=== PATIENT | female | born 1975 | race Two or more races ===

== ENCOUNTER 2024-10-06 09:55 | Outpatient (AMB) | payer OTHER, SELFPAY ==
[2024-10-06 09:57] VITALS: BP 118/70; PULSE 67; O2SAT 96; BMI 25.2
--- NOTE | 2024-10-06 09:57 | MHC.OFFVIS ---
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 Patient was seen in ED in June for episode of fainting. Echo done(normal). Confussion associated w/fainting episode for at least 10min after. Echo requested from [facility]. Patient states she now has a feeling of dizziness. Patient stqates she is not taking medications at this time. Allergies Penicillins Allergy (Mild, Verified 10/06/24 10:02) Unknown Medication List - Last Reconciled 10/06/24 by CLIFFORD Abdalla escitalopram oxalate 20 mg PO DAILY fluticasone propionate 50 mcg/actuation 1 spray intranasal BID hydroxyzine HCl 10 mg PO BID PRN loratadine 10 mg PO DAILY PRN meclizine 25 mg PO BID PRN valacyclovir 2,000 mg PO BID PRN HPI Comments Details: History of Present Illness The patient is a 49-year-old female presenting with concerns regarding history of 2 separate syncopal events and intermittent dizziness. The initial episode occurred approximately two years ago in [facility], around June. The 1st time was 2 years ago, she was in [place] on vacation.? She states she woke up around 4-5am with need to void. She reports she had to ask her boyfriend for help because she could not move. Her boyfriend helped her up to the bathroom. She used the bathroom. ?Upon walking back to the bed, she started to feel lightheaded, everything looked black and white, her boyfriend?s voice felt distant, she became increasingly weak and slow associated with back soreness until she fainted and fell to the floor. Her boyfriend told her she had LOC x's 5-6 min. there was no report of urinary or bowel incontinence. ?She was treated by someone who came to her- was given coconut water, and she started to feel better. She states it took her 4-5 hours to feel better after coming to. In hindsight, she thinks she was very dehydrated- had not been drinking enough water. She endorses eating well with the before, however denies any alcohol or substance use. ? 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 During this event, she had been sipping on teen water, when she felt the need to eat and proceeded to the cafeteria for an apple. She fainted before she could consume it. It was noted that she was partaking in an intermittent fasting regime, having not eaten for 15 hours prior to the episode. Upon recovery, the patient reported brief transient confusion and inability to recall personal information. The school staff assisted her into a w/c, and she was brought to the nurses? station, and she could not recall her age. Had orthostatic BPs by the school nurse- was told this was normal. She was brought to [facility] ER- however she was not seen before she left. She did get some food from the [facility] cafeteria, and after eating, she started to feel better, so she left. ?She attributed the episode to prolonged fasting. ? Since these events, she reports occasional dizziness, particularly upon standing or exerting herself physically, often alleviated by holding onto an object or hydrating. She perceives this dizziness as a sensation of the world spinning. There is no prior history of syncope before these episodes. She underwent cardiology assessment through [facility], at [facility], with no abnormalities noted in her heart function.? Echocardiogram is normal ? She also notes she likes to sleep la, can oversleep and takes naps- for instance- yesterday took a nap from 6pm-10pm, and then woke up dis some housework, and slept from 12am-8am. Typically sleeps from 10pm-5am- to be ready for work for 8am. Endorses snoring, some restless legs, leg cramps, daytime sleepiness. ? 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 She is now taking at least 100oz of water w/ chevak/mint/cucumbers per day. May also have 1-2 teas per day. Occasionally may drink a coconut water. Takes some salt with her eggs in the am, or to season her food- but not a lot. Has not used any liquid IV or Gatorade/Powerade- tries to take natural drinks/food. ? Family History: - Grandfather with a history of cardiovascular disease associated with alcohol use ? ? Review of Systems - Neurological: Reports dizziness, especially when moving or standing; denies history of seizures, headaches - Respiratory: Denies shortness of breath - Cardiovascular: Denies chest pain, SOB, skin color changes, swelling; reports history of two syncope episodes - Sleep: Reports excessive sleepiness; difficulty maintaining focus - Musculoskeletal: Reports nocturnal leg cramps; possible restless legs - Gastrointestinal: Denies regular episodes of GI distress ? ? Results - Echocardiogram: Reported as normal - from : TOTAL IRON BINDING CAPAC* 06/30/2022 334 ? IRON (FE) 06/30/2022 195 (H) ? % FE SATURATION 06/30/2022 58 (H) ? FERRITIN 06/30/2022 43 Review of Systems - Neurological: Reports dizziness, especially when moving or standing; denies history of seizures - Respiratory: Denies shortness of breath - Cardiovascular: Denies chest pain; reports history of two syncope episodes - Sleep: Reports excessive sleepiness; difficulty maintaining focus - Musculoskeletal: Reports nocturnal leg cramps; denies restless legs - Gastrointestinal: Denies regular episodes of GI distress Results - Echocardiogram: Reported as normal [facility] Medical History (Updated 10/06/24 @ 13:40 by CLIFFORD Abdalla) Anemia Bony overgrowth Venous insufficiency Anxiety Allergic rhinitis Herpes simplex type 1 infection Thrombophlebitis Leg pain Syncope Surgical History History of removal of skin mole Family History (Updated 04/23/24 @ 12:59 by SHARONDA Boyd) Sister Thyroid cancer Social History (Updated 04/23/24 @ 12:57 by SHARONDA Boyd) Alcohol intake: never Patient Tobacco Use Status: Never used Tobacco e-Cigarette/Vaping Use: Never Used Physical Exam Vital Signs: Last Vital Signs Pulse 67 10/06/24 09:57 BP 118/70 10/06/24 09:57 Pulse Ox 96 10/06/24 09:57 Oxygen Delivery Method Room Air 10/06/24 09:57 BMI result Body Mass Index 25.2 Const Orientation/consciousness: patient oriented x3 Resp Effort & Inspection: normal respiratory effort and able to speak in complete sentences Neuro Other: Mallampati stage III-IV Mild sway on Romberg General: patient oriented x3 Cranial nerves: Yes CN's II-XII intact bilaterally Cognition (Neuro): normal cognition Gait exam (Neuro): Normal gait present Motor exam (neuro): 5/5 motor strength present throughout Deep tendon reflexes (DTR's): Right triceps reflex intensity grade: 2+, Left triceps reflex intensity grade: 2+, Rt Biceps (C5, C6): 2+, Left biceps reflex intensity grade: 2+, Right brachioradialis reflex intensity grade: 2+, Left brachioradialis reflex intensity grade: 2+, Right patellar reflex intensity grade: 2+ and Left patellar reflex intensity grade: 2+ Coordination: [id number] test normal and tandem gait normal Pupils: Normal pupillary reactivity/response: bilateral Psych Appearance: grossly normal Mental Status: mental status grossly normal Speech and movement: Normal speech and movement present Affect: normal affect Attitude: cooperative Thought process: Normal thought process present Assessment & Plan Assessment & Plan (1) Syncope: Code(s): R55 - Syncope and collapse Category: Medical Qualifiers: Syncope type: unspecified Qualified Code(s): R55 - Syncope and collapse (2) Snoring: Code(s): R06.83 - Snoring Category: Medical (3) Dizziness: Code(s): R42 - Dizziness and giddiness Category: Medical (4) Excessive daytime sleepiness: Code(s): G47.19 - Other hypersomnia Category: Medical (5) Sleep difficulties: Code(s): G47.9 - Sleep disorder, unspecified Category: Medical Plan Discussion Notes During the consultation, I discussed with the patient the potential causes of her syncopal episodes. I explained that dehydration and fasting likely contributed to episodes of orthostatic hypotension, resulting in syncope. We reviewed the importance of adequate hydration and nutrition to maintain stable blood pressure. I also counseled her on the symptoms consistent with sleep apnea and possible restless leg symptoms, and the potential need for further evaluation through a sleep study to investigate excessive daytime sleepiness. The risks and benefits of such evaluations were discussed, focusing on obtaining baseline data to rule out sleep-disordered breathing, which may contribute to her symptoms. We emphasized the need for careful fluid and electrolyte management, especially when physically active or in varying climates. The patient expressed understanding of the recommendations and the rationale for further testing. Plan - Recommend reducing daily fluid intake to approximately 75 fluid ounces per day. - Introduce the use of an electrolyte replacement supplement, such as one packet of Liquid IV per day, to counter orthostatic hypotension symptoms. - Advise on performing actions such as standing slowly and regularly consuming small amounts of food to avoid fasting-related hypotension. - Prescribe Magnesium 400 mg daily at bedtime to potentially mitigate leg cramps, with a warning of potential adverse effects. - Order home sleep study to investigate symptoms indicative of potential sleep apnea. - Retrieved past laboratory results from her primary care provider to evaluate for anemia or other possible metabolic conditions contributing to her restlessness and fatigue- limited results available, last done in 2022. We will order baseline labs Patient was informed and verbally consented to the use of an ambient scribe for clinic note documentation during this visit. Patient Instructions - Drink about 75 ounces of water each day. Flavor with chevak, cucumber, or mint as desired. - Take one electrolyte supplement a day, like Liquid IV, to help stay hydrated. - Stand up slowly to avoid dizziness. - Take Magnesium at bedtime, but stop if you get an upset stomach. - Have small meals regularly; don't skip meals. - We're doing a home sleep study soon; you'll hear more about it. - Check labs - Allow tip: Feel tired in the shower? Drink water before you bathe. - Contact us with any new or worsening symptoms. Pt seen in collaboration w/ Dr Velia To. We will follow-up upon review of above and with a follow-up clinic visit in 6 months or sooner as needed. Orders: Orders Comprehensive [place]. Panel Fast Today D64.9 - Anemia, unspecified, R25.2 - Cramp and spasm, R42 - Dizziness and giddiness, R53.83 - Other fatigue Ferritin Today D64.9 - Anemia, unspecified, R25.2 - Cramp and spasm, R42 - Dizziness and giddiness, R53.83 - Other fatigue IRON PROFILE Today D64.9 - Anemia, unspecified, R25.2 - Cramp and spasm, R42 - Dizziness and giddiness, R53.83 - Other fatigue RT home sleep study Today G47.19 - Other hypersomnia, G47.9 - Sleep disorder, unspecified, R06.83 - Snoring Complete Blood Count Auto Diff Today D64.9 - Anemia, unspecified, R25.2 - Cramp and spasm, R42 - Dizziness and giddiness, R53.83 - Other fatigue Vitamin B12 and Folate Today D64.9 - Anemia, unspecified, R25.2 - Cramp and spasm, R42 - Dizziness and giddiness, R53.83 - Other fatigue TSH reflex Free T4 Today D64.9 - Anemia, unspecified, R25.2 - Cramp and spasm, R42 - Dizziness and giddiness, R53.83 - Other fatigue Medications: New magnesium oxide may hold for loose stools 400 mg PO BEDTIME 90 tabs 3RF 90 days Coding Level of Care Code New Pt Level 4 (42895) Diagnoses Syncope, unspecified syncope type R55 Syncope type: unspecified Snoring R06.83 Dizziness R42 Excessive daytime sleepiness G47.19 Sleep difficulties G47.9 [place] Sleepiness Scale Questions Sitting and reading: high chance of dozing Watching TV: high chance of dozing Sitting inactive in a theater, movie etc.: high chance of dozing As a passenger in a car for an hour without break: high chance of dozing Lying down in the afternoon when circumstances permit: high chance of dozing Sitting and talking to someone: high chance of dozing Sitting quietly after lunch without alcohol: high chance of dozing In a car, while stopped for a few minutes in the traffic: slight chance of dozing ESS < 10: normal, ESS > 12: pathologic: 22
--- OUTSIDE RECORDS SUMMARY | 2024-10-06 10:34 | XMS_ITS ---
Author Name [facility] Organization Unknown History of Medication Use Medication Directions Dispensed Refills Start Date End Date Stat us escitalopram (LEXAPRO) 10 MG tablet Take 10 mg by mouth daily. 10/10/2022 active Allergies Allergen Reaction Severity Comment Documented Date Source Statu s PENICILLINS UNKNOWN/PATIENT AND FAMILY UNABLE TO DEFINE 11/17/2022 [facility] active Problems Problem Status Onset Date Problem Type Date of Resoluti on Source Tinnitus of left ear active EncounterDiagnosisAct CCT Encounters Encounter Type Encounter Reason Primary Diagnosis Location Date Ambulatory Tinnitus, left ear Tinnitus, left ear [facility] 11/24/2022 Ambulatory Tinnitus, left ear Tinnitus, left ear [facility] 11/20/2022 Ambulatory Tinnitus, left ear Tinnitus, left ear [facility] 11/17/2022 Ambulatory [facility] 05/28/2021 Ambulatory Injury [facility] 05/28/2021 Care Team Organization Name Specialty Phone Email Start Date End Da te [facility] 11/17/2022 05/17/2024 [facility] 11/17/2022 11/17/2022 [facility] 05/2810/22/2023
--- OUTSIDE RECORDS SUMMARY | 2024-10-06 10:34 | XMS_ITS | Clinical Summary ---
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 3 Active hydrOXYzine HCl (ATARAX) 10 MG tablet TAKE 1 TABLET BY MOUTH TWICE A DAY NEEDED FOR ITCHING 3 Active meclizine (ANTIVERT) 25 MG tablet PLEASE SEE ATTACHED FOR DETAILED DIRECTIONS 3 Active sertraline (ZOLOFT) 50 MG tablet 3 Active Active Problems No known active problems Family History Medical History Relation Name Comments Cancer Other FAMILY Diabetes Other FAMILY Relation Name Status Comments Other FAMILY Social History Tobacco Use Types Packs/Day Years Used Date Smoking Tobacco: Never Smokeless Tobacco: Never Tobacco Cessation:Counseling Given: Not Answered Alcohol Use Standard Drinks/Week Comments Not Currently 0 (1 standard drink = 0.6 oz pur e alcohol) Comments Unknown Sex and Gender Information Value Date Recorded Sex Assigned at Not on file Legal Sex Female 10:13 AM EDT Gender Identity Not on file Sexual Orientation Not on file Plan of Treatment Health Maintenance Due Date Last Done Comments Hepatitis C Virus Screening 1973 HIV Screening 1986 DTaP/Tdap/Td Vaccines (1 - Tdap) 1992 Hepatitis B Vaccines (1 of 3 - 19+ 3-dose series) 09/03 Pap Smear (Ages 21-65) 1994 Mammogram 2013 Colonoscopy 2018 Pneumococcal Vaccines 50+ (1 of 1 - PCV) 09/23/2023 Zoster (Shingles) Vaccine (1 of 2) 09/23/2023 COVID-19 Vaccine ( - 2023- season) 2023 Influenza Vaccine 10/03/2024 Insurance [facility]
--- OUTSIDE RECORDS SUMMARY | 2024-10-06 10:34 | XMS_ITS | Clinical Summary ---
Author Organization [facility] Address [address] [place] [address] Phone Care Team Providers Care Procurement Specialist Name Role Phone Sharon Garcia Primary Care Provider + Allergies Active Allergy Reactions Criticality Noted Date Comments Penicillins Swelling 12/11/2008 Medications fluticasone propionate (FLONASE) 50 mcg/actuation nasal spray 1 [place] by Nasal route 2 times daily. 3 Active loratadine 10 mg capsule Take 1 Capsule by mouth as needed. Active valACYclovir (VALTREX) 1 gram tablet Take 2 Tablets by mouth 2 times daily. X 1 day prn oral cold sore. 3 Active diclofenac (VOLTAREN) 1 % topical gel Route: Apply 4 g topically 2 times daily. - Apply externally 4 Active polyethylene glycol (Golytely) 236-22.74-6.74 -5.86 gram solution Take 4L by mouth once for one dose. May substitue any PEG. Starting at 6PM the night before your procedure drink 1 8oz glasses at your own pace until you complete half of the gallon. Finish 2nd half of the gallon 5 hours before your procedure. 4000 mL 5 Active bisacodyL (DULCOLAX) 5 mg EC tablet Take 2 tablets by mouth right before beginning bowel prep. See instructions provided by the office 2 tablet 5 Active vitamin iron fum-folic acid 27-0.8 mg per tablet Take 1 tablet by mouth 1 (one) time each day. Active biotin 5,000 mcg tablet,chewable Chew. Acti ve cyanocobalamin, vitamin B-12, 5,000 mcg tablet,disinteg rating Dissolve on top of the tongue. Active acetaminophen (Tylenol Extra Strength) 500 mg tablet Take 2 tablets (1,000 mg total) by mouth every 6 (six) hours if needed for mild pain. 90 tablet 3 5 10/21/19 25 Active Active Problems Problem Noted Date Diagnosed Date Syncope 07/05/2022 Leg pain 02/21/2019 Thrombophlebitis 02/21/2019 Herpes simplex type 1 infection 09/10/2018 Allergic rhinitis 07/10/2012 Anxiety 03/08/2012 Venous insufficiency 07/26/2011 Encounters Date Type Department Care Team Description 09/09/2024 2:30 PM EDT Treatment [address] [phone] Josue Rangel PTA Arm pain, anterior, right (Primary Dx) 08/20/2024 3:30 PM EDT Evaluation [address] [phone] Gardenia Page PT Arm pain, anterior, right 07/22/2024 3:45 PM EDT Office Visit Internal Medicine [address] [place] [phone] Sue Jama MD Arm pain, anterior, right (Primary Dx); Lipoma of right upper extremity; Menopause from Last 3 Months Surgical History Surgery Date Site/Laterality Comments FOOT SURGERY Medical History Medical History Date Comments Allergic rhinitis 07/10/2012 DX:Allergic rh initis Anxiety 03/08/2012 DX:Anxiety Venous insufficiency 07/26/2011 DX:Venous i nsufficiency Family History Medical History Relation Name Comments Other: ca thyroid Sister 1 Relation Name Status Comments Brother Alive Father Alive Mother Alive Sister 1 Alive Sister 2 Alive Social History Tobacco Use Types Packs/Day Years Used Date Smoking Tobacco: Never Smokeless Tobacco: Never Tobacco Cessation:Counseling Given: Not Answered Alcohol Use Standard Drinks/Week Comments No 0 (1 standard drink = 0.6 oz pur e alcohol) Interpersonal Safety Answer Date Record ed Physical Abuse 04/09/2024 Verbal Abuse 04/09/2024 Comments Unknown Sex and Gender Information Value Date Recorded Sex Assigned at Female 04/08/2024 8:46 AM EST Legal Sex Female 2:20 PM EST Gender Identity Female 04/08/2024 8:46 AM EST Sexual Orientation Straight 04/08/2024 8: 46 AM EST Obstetrics History Last Filed Vital Signs Vital Sign Reading Time Taken Comments Blood Pressure 126/78 07/22/2024 3:37 PM EDT Pulse 81 07/22/2024 3:37 PM EDT Temperature 36.1 C (97 F) 04/09/2024 3:18 PM EST Respiratory Rate 16 04/09/2024 4:13 PM EST Oxygen Saturation 96% 07/22/2024 3:37 PM EDT Inhaled Oxygen Concentration - - Weight 72.6 kg (160 lb) 07/22/2024 3:37 PM EDT Height 165.1 cm (5' 5 ) 04/08/2024 3:57 PM EST Body Mass Index 26.63 04/08/2024 3:57 PM EST Plan of Treatment Upcoming Encounters Date Type Department Care Team (Late st Contact Info) Description 10/07/2024 2:30 PM EDT Treatment [facility] [address] [phone] Jemal Sotelo, SHIPPING AND RECEIVING MATERIAL HANDLER 10/14/2024 2:30 PM EDT Treatment [facility] [address] [phone] Gardenia Page, PT 10/21/2024 2:30 PM EDT Treatment [facility] [address] [phone] Gardenia Page, PT 10/28/2024 2:30 PM EDT Treatment [facility] [address] [phone] Gardenia Page, PT 11/04/2024 2:30 PM EDT Treatment [facility] [address] [phone] Gardenia Page, PT 04/08/2025 4:00 PM EST Office Visit Internal Medicine - [place] 175 [facility] [address] [place] [address] Jose Manning MD 175 [facility] [address] [place] [address] Health Maintenance Due Date Last Done Comments Breast Cancer Screening 1975 DTaP,Tdap,and Td Vaccines (1 - Tdap) 1992 Hepatitis B Vaccines (1 of 3 - 19+ 3-dose series) 1992 Cervical Cancer Screening: P ap Smear 1994 Social Influencers of Health Screening 02/01/2022 Pneumococcal Vaccine: 50+ Years (1 of 1 - PCV) 09/23/2023 Zoster Vaccines (1 of 2) 09/23/2023 COVID-19 Vaccine (4 - 2023-2 5 season) 2023 03/14/2021, 06/18/2020, 05/27/2020 Depression Screening 03/05/2024 Influenza Vaccine (#1) 2024 Cholesterol Screening (Lipid Panel) 02/07/2028 02/06/2023 Colorectal Cancer Screening: Colonoscopy 04/09/2034 04/09/2024 Hepatitis C Screening Completed 02/06/2023 HIV Screening Completed 12/14/2023 HIB Vaccines Aged Out No longer eligi ble based on patient's age to complete this topic HPV Vaccines Aged Out No longer eligi ble based on patient's age to complete this topic Hepatitis A Vaccines Aged Out No long er eligible based on patient's age to complete this topic IPV Vaccines Aged Out No longer eligi ble based on patient's age to complete this topic MMR Vaccines Aged Out No longer eligi ble based on patient's age to complete this topic Meningococcal ACWY Vaccine Aged Out N o longer eligible based on patient's age to complete this topic Meningococcal B Vaccine Aged Out No l onger eligible based on patient's age to complete this topic RSV Immunization Patients Under 20 months Aged Out No longer eligible b ased on patient's age to complete this topic Varicella Vaccines Aged Out No longer eligible based on patient's age to complete this topic Goals Goal Patient Goal Type Associated Problems Recent Progress Patient-Stated? Author PT LTG - 6 visits General No Gardenia Page PT Note: Patient reports subjective decrease in right elbow pain Slight trigger point to right wrist extensors Normal radioulnar joint mobility on R Slight wrist extensor flexibility restriction bilaterally Patient is independent and compliant with HEP Procedures Procedure Name Priority Date/Time Associated Diagnosis Comments COLONOSCOPY Routine 04/09/2024 3:52 PM EST Encounter for screening for malignant neoplasm of colon HM HEPATITIS C SCREENING Routine 02/06/2023 LIPID PANEL Routine 02/06/2023 from Last 3 Months or Most Recently Relevant to Health Maintenance Results * COLONOSCOPY Anesthesia - MAC; [facility] ENDOSCOPY (04/09/2024 3:52 PM EST) Anatomical Region Laterality Modality Endoscopy 04/09/2024 3:30 PM EST Impressions 04/09/2024 3:51 PM EST - The examination was otherwise normal on direct and retroflexion views. - No specimens collected. Recommendation: - - Discharge patient to home. - Resume previous diet. - Continue present medications. - Repeat colonoscopy in 10 years for screening purposes. - Return to primary care physician. Narrative 04/09/2024 3:51 PM EST [facility] GI Patient Name: Marin Fox Procedure Date: 04/09/2024 3:30 PM Date of : 1975 Age: 48 Gender: Female Note Status: Finalized Attending MD: Lavern Sweeney DO, [id number] Procedure Date No Time: 04/09/2024 Procedure: Colonoscopy Indications: Screening for colorectal malignant neoplasm Providers: Lavern Sweeney DO Referring MD: Jose Manning MD Medicines: Monitored Anesthesia Care Complications: No immediate complications. Estimated blood loss: None. Estimated Blood Loss: Estimated blood loss: none. Procedure: Pre-Anesthesia Assessment: - - Prior to the procedure, a History and Physical was performed, and patient medications and allergies were reviewed. The patient is competent. The risks and benefits of the procedure and the sedation options and risks were discussed with the patient. All questions were answered and informed consent was obtained. Patient identification and proposed procedure were verified by the physician, the nurse, the anesthesiologist, the job honer and the neon technician in the pre-procedure area in the endoscopy suite. Mental Status Examination: alert and oriented. Airway Examination: normal oropharyngeal airway and neck mobility. Respiratory Examination: clear to auscultation. CV Examination: normal. Prophylactic Antibiotics: The patient does not require prophylactic antibiotics. Prior Anticoagulants: The patient has taken no anticoagulant or antiplatelet agents. ASA Grade Assessment: II - A patient with severe systemic disease. After reviewing the risks and benefits, the patient was deemed in satisfactory condition to undergo the procedure. The anesthesia plan was to use monitored anesthesia care (MAC). Immediately prior to administration of medications, the patient was re-assessed for adequacy to receive sedatives. The heart rate, respiratory rate, oxygen saturations, blood pressure, adequacy of pulmonary ventilation, and response to care were monitored throughout the procedure. The physical status of the patient was re-assessed after the procedure. After I obtained informed consent, the scope was passed under direct vision. Throughout the procedure, the patient's blood pressure, pulse, and oxygen saturations were monitored continuously. The Colonoscope was introduced through the anus and advanced to the cecum, identified by appendiceal orifice and ileocecal valve. The colonoscopy was performed without difficulty. The patient tolerated the procedure well. The quality of the bowel preparation was good. Findings: The exam was otherwise without abnormality on direct and retroflexion views. Procedure Code(s): --- Professional --- G0121, Colorectal cancer screening; colonoscopy on individual not meeting criteria for high risk Diagnosis Code(s): --- Professional --- Z12.11, Encounter for screening for malignant neoplasm of colon CPT copyright 2020 [employer]. All rights reserved. The codes documented in this report are preliminary and upon roll mill operator review may be revised to meet current compliance requirements. LAVERN Sweeney DO 04/09/2024 3:51:32 PM This report has been signed electronically.Lavern Sweeney DO Number of Addenda: 0 Note Initiated On: 04/09/2024 3:30 PM Scope Withdrawal Time: 0 hours 7 minutes 0 seconds Scope In: 3:41:09 PM Scope Out: 3:50:23 PM Endoscopy Department at [facility] - [address] [place] [phone] Procedure Note Lavern Sweeney DO - 04/09/2024 [facility] GI Patient Name: Marin Fox Procedure Date: 04/09/2024 3:30 PM Date of : 1975 Age: 48 Gender: Female Note Status: Finalized Attending MD: Lavern Sweeney DO, [id number] Procedure Date No Time: 04/09/2024 Procedure: Colonoscopy Indications: Screening for colorectal malignant neoplasm Providers: Lavern Sweeney DO Referring MD: Jose Manning MD Medicines: Monitored Anesthesia Care Complications: No immediate complications. Estimated blood loss:None. Estimated Blood Loss: Estimated blood loss: none. Procedure: Pre-Anesthesia Assessment: - - Prior to the procedure, a History and Physicalwas performed, and patient medications and allergieswere reviewed. The patient is competent. The risks and benefits of the procedure and the sedation optionsand risks were discussed with the patient. Allquestions were answered and informed consent was obtained. Patient identification and proposed procedure were verified by the physician, the nurse, the anesthesiologist, the job honer and thetechnician in the pre-procedure area in the endoscopy suite. Mental Status Examination: alert and oriented.Airway Examination: normal oropharyngeal airway and neck mobility. Respiratory Examination: clear to auscultation. CV Examination: normal. Prophylactic Antibiotics: The patient does not requireprophylactic antibiotics. Prior Anticoagulants: The patient has taken no anticoagulant or antiplatelet agents. ASA Grade Assessment: II - A patient with severesystemic disease. After reviewing the risks and benefits,the patient was deemed in satisfactory condition to undergo the procedure. The anesthesia plan was touse monitored anesthesia care (MAC). Immediately priorto administration of medications, the patient was re-assessed for adequacy to receive sedatives. The heart rate, respiratory rate, oxygen saturations, blood pressure, adequacy of pulmonary ventilation,and response to care were monitored throughout the procedure. The physical status of the patient was re-assessed after the procedure. After I obtained informed consent, the scope was passed under direct vision. Throughout theprocedure, the patient's blood pressure, pulse, and oxygen saturations were monitored continuously. The Colonoscope was introduced through the anus and advanced to the cecum, identified by appendiceal orifice and ileocecal valve. The colonoscopy was performed without difficulty. The patient tolerated the procedure well. The quality of the bowel preparation was good. Findings: The exam was otherwise without abnormality ondirect and retroflexion views. Procedure Code(s): --- Professional --- G0121, Colorectal cancer screening; colonoscopy on individual not meeting criteria for high risk Diagnosis Code(s): --- Professional --- Z12.11, Encounter for screening for malignantneoplasm of colon CPT copyright 2020 [employer]. All rights reserved. The codes documented in this report are preliminary and upon roll mill operator reviewmay be revised to meet current compliance requirements. LAVERN Sweeney DO 04/09/2024 3:51:32 PM This report has been signed electronically.Lavern Sweeney DO Number of Addenda: 0 Note Initiated On: 04/09/2024 3:30 PM Scope Withdrawal Time: 0 hours 7 minutes 0 seconds Scope In: 3:41:09 PM Scope Out: 3:50:23 PM Endoscopy Department at [address] [phone] IMPRESSION: - The examination was otherwise normal on direct and retroflexion views. - No specimens collected. Recommendation: - - Discharge patient to home. - Resume previous diet. - Continue present medications. - Repeat colonoscopy in 10 years for screening purposes. - Return to primary care physician. Result [facility] Lavern Sweeney DO GI~PROCEDURE ORDERABLES Final Re sult * Hepatitis C Screening (02/06/2023) Pathologist [facility] Hepatitis C Screening Abstracted Historical Provider HEALTH MAINTENANCE Final Result * (ABNORMAL) Lipid panel (02/06/2023) Pathologist [facility] LDL/HDL Ratio 3 0 - 4 Triglycerides 90 0 - 150 mg/dL Cholesterol 217(A) 0 - 200 mg/dL HDL 64 >=40 mg/dL LDL Cholesterol 135(A) 0 - 100 mg/dL Blood Venous blood specimen / Unknown Historical Provider LAB BLOOD ORDERABLES Latoya l Result from Last 3 Months or Most Recently Relevant to Health Maintenance Insurance [facility] [address] [place] [address] Care Teams Procurement Specialist Relationship Specialty Start Date End Date Sharon Garcia PA 175 [facility] [address] [place] [address] PCP - General Primary Care 04/09/24
== END 2024-10-06 11:13 | disposition home or self-care (01) ==
LOC: HO.HSMS 09:55
PROVIDERS: PCP Internal Medicine; Visit Provider Nurse Practitioner Family
DX: R55 Syncope and collapse (principal); R06.83 Snoring; R42 Dizziness and giddiness; G47.19 Other hypersomnia; G47.9 Sleep disorder, unspecified
CPT/HCPCS: 99204

== ENCOUNTER 2024-10-07 08:28 | Outpatient (REF) | payer OTHER, SELFPAY ==
--- OUTSIDE RECORDS SUMMARY | 2024-10-07 08:40 | XMS_ITS | Clinical Summary ---
Author Organization [facility] Address [address] [place] [address] Phone Care Team Providers Care Wall Scraper Name Role Phone Sharon Garcia Primary Care Provider + Allergies Active Allergy Reactions Criticality Noted Date Comments Penicillins Swelling 12/11/2008 Medications fluticasone propionate (FLONASE) 50 mcg/actuation nasal spray 1 [place] by Nasal route 2 times daily. 3 [...] Team Description 09/09/2024 2:30 PM EDT Treatment [address] [phone] Josue Rangel PTA Arm pain, anterior, right (Primary Dx) 08/20/2024 3:30 PM EDT Evaluation [address] [phone] Gardenia Page PT Arm pain, anterior, right 07/22/2024 3:45 PM EDT Office Visit Internal Medicine [address] [place] [phone] Sue Jama MD Arm pain, anterior, right [...] Info) Description 10/07/2024 2:30 PM EDT Treatment [facility] [address] [phone] Jemal Sotelo, DEGREASER 10/14/2024 2:30 PM EDT Treatment [facility] [address] [phone] Gardenia Page, PT 10/21/2024 2:30 PM EDT Treatment [facility] [address] [phone] Gardenia Page, PT 10/28/2024 2:30 PM EDT Treatment [facility] [address] [phone] Gardenia Page, PT 11/04/2024 2:30 PM EDT Treatment [facility] [address] [phone] Gardenia Page, PT 04/08/2025 4:00 PM EST Office Visit Internal Medicine - [place] 175 [facility] [address] [place] [address] Jose Manning MD 175 [facility] [address] [place] [address] Health Maintenance Due Date Last Done Comments [...] Maintenance Results * COLONOSCOPY Anesthesia - MAC; [facility] ENDOSCOPY (04/09/2024 3:52 PM EST) Anatomical Region [...] care physician. Narrative 04/09/2024 3:51 PM EST [facility] GI Patient Name: Marin Fox Procedure Date: 04/09/2024 3:30 PM Date of : 1975 Age: 48 Gender: Female Note Status: Finalized Attending MD: Lavern Sweeney DO, [id number] Procedure Date No Time: 04/09/2024 Procedure: Colonoscopy [...] the physician, the nurse, the anesthesiologist, the senior windows administrator and the building maintenance technician in the pre-procedure area in the [...] malignant neoplasm of colon CPT copyright 2020 [employer]. All rights reserved. The codes documented in this report are preliminary and upon chair caner review may be revised to meet current compliance requirements. LAVERN Sweeney DO 04/09/2024 3:51:32 PM This report has been signed electronically.Lavern Sweeney DO Number of Addenda: 0 Note Initiated On: 04/09/2024 3:30 PM Scope Withdrawal Time: 0 hours 7 minutes 0 seconds Scope In: 3:41:09 PM Scope Out: 3:50:23 PM Endoscopy Department at [facility] - [address] [place] [phone] Procedure Note Lavern Sweeney DO - 04/09/2024 [facility] GI Patient Name: Mairn Fox Procedure Date: 04/09/2024 3:30 PM Date of : 1975 Age: 48 Gender: Female Note Status: Finalized Attending MD: Lavern Sweeney DO, [id number] Procedure Date No Time: 04/09/2024 Procedure: Colonoscopy [...] the physician, the nurse, the anesthesiologist, the senior windows administrator and thetechnician in the pre-procedure area in [...] for malignantneoplasm of colon CPT copyright 2020 [employer]. All rights reserved. The codes documented in this report are preliminary and upon chair caner reviewmay be revised to meet current compliance requirements. LAVERN Sweeney DO 04/09/2024 3:51:32 PM This report has been signed electronically.Lavern Sweeney DO Number of Addenda: 0 Note Initiated On: 04/09/2024 3:30 PM Scope Withdrawal Time: 0 hours 7 minutes 0 seconds Scope In: 3:41:09 PM Scope Out: 3:50:23 PM Endoscopy Department at [address] [phone] IMPRESSION: - The examination was otherwise normal on direct and retroflexion views. - No specimens collected. Recommendation: - - Discharge patient to home. - Resume previous diet. - Continue present medications. - Repeat colonoscopy in 10 years for screening purposes. - Return to primary care physician. Result [facility] Lavern Sweeney DO GI~PROCEDURE ORDERABLES Final Re sult * Hepatitis C Screening (02/06/2023) Pathologist [facility] Hepatitis C Screening Abstracted Historical Provider HEALTH MAINTENANCE Final Result * (ABNORMAL) Lipid panel (02/06/2023) Pathologist [facility] LDL/HDL Ratio 3 0 - 4 Triglycerides 90 0 - 150 mg/dL Cholesterol 217(A) 0 - 200 mg/dL HDL 64 >=40 mg/dL LDL Cholesterol 135(A) 0 - 100 mg/dL Blood Venous blood specimen / Unknown Historical Provider LAB BLOOD ORDERABLES Latoya l Result from Last 3 Months or Most Recently Relevant to Health Maintenance Insurance [facility] [address] [place] [address] Care Teams Wall Scraper Relationship Specialty Start Date End Date Sharon Garcia PA 175 [facility] [address] [place] [address] PCP - General Primary Care 04/09/24
--- OUTSIDE RECORDS SUMMARY | 2024-10-07 08:40 | XMS_ITS | Clinical Summary ---
Author Organization [facility] Address [address] [place] [address] Care Team Providers Care Sewing Machine Operator Semiautomatic Name Role Phone Unavailable Primary Care Provider [...] 2023- season) 2023 Influenza Vaccine 10/03/2024 Insurance [facility]
[2024-10-07 13:13] LABS: MANUAL DIFF FLAG NO
[2024-10-07 13:50] LABS: Hematocrit 43.6 % (37.0-47.0); Hemoglobin 14.0 g/dl (12.0-16.0); Imm Gran Abs Auto 0.01 X10*3/uL (0.00-0.03); Imm Gran Pct Auto 0.2 % (0.0-0.4); Lymphocytes Absolute Auto 2.1 X10*3/uL (1.2-4.9); Mean Corpuscular HGB Conc 32.1 g/dl (31.0-35.0); Mean Corpuscular Hemoglobin 30.0 pg (27.0-33.0); Mean Corpuscular Volume 93.4 fL (80.0-98.0); NRBC Abs Auto 0.000 X10*3/uL (0.0-0.012); NRBC Pct Auto 0.0 /100WBC (0.0-0.2); Platelet Count 183 X10*3/uL (160-400); Red Blood Count 4.67 X10*6/uL (4.20-5.50); White Blood Count 5.4 X10*3/uL (4.8-10.8)
[2024-10-07 14:07] LABS: Alanine Aminotransferase 24 U/L (0-31); Albumin Level 4.1 g/dL (3.5-5.0); Alkaline Phosphatase 80 U/L (39-117); Anion Gap 12 (12-20); Aspartate Amino Transferase 24 U/L (5-31); Blood Urea Nitrogen 13 mg/dL (9-16); Calcium 9.0 mg/dL (8.4-10.2); Carbon Dioxide 28 mmol/L (22-29); Chloride 108 mmol/L (96-108); Estimated Glomerular Filt Rate 55; Iron 117 mcg/dL (30-160); Percent Iron Saturation 45 % (15-50); Potassium 4.1 mmol/L (3.3-5.1); Sodium 144 mmol/L (135-145); Total Iron Binding Capacity 261 mcg/dL (228-428); Total Protein 6.9 g/dL (6.5-8.0); Unsaturated Iron Binding 144 ug/dL
[2024-10-07 14:27] LABS: Ferritin 100 ng/mL (10-250)
[2024-10-07 14:30] LABS: Folate 11.4 ng/mL (> or = 4.0); Vitamin B12 1829 pg/mL (200-900)
== END 2024-10-07 08:29 | disposition home or self-care (01) ==
LOC: HO.HKASLDS 08:28
PROVIDERS: Visit Provider Nurse Practitioner Family
DX: R42 Dizziness and giddiness (principal); R25.2 Cramp and spasm; R53.83 Other fatigue; D64.9 Anemia, unspecified
CPT/HCPCS: 36415; 80053; 82607; 82728; 82746; 83540; 84443; 85025

== ENCOUNTER → 2024-12-11 14:58 | Outpatient (REF) | payer OTHER, SELFPAY | LOC: HO.SL 14:58 | PROVIDERS: PCP Physician Assistant; Visit Provider Nurse Practitioner Family | DX: R06.83 Snoring (principal); G47.19 Other hypersomnia; G47.9 Sleep disorder, unspecified | CPT/HCPCS: 95806 ==

== ENCOUNTER → 2024-12-11 15:15 | Outpatient (BNV) | payer OTHER, SELFPAY | PROVIDERS: PCP Physician Assistant; Visit Provider Psychiatry & Neurology Neurology | DX: G47.33 Obstructive sleep apnea (adult) (pediatric) (principal) | CPT/HCPCS: 95806 ==

== ENCOUNTER 2025-01-02 14:36 | Outpatient (AMB) | payer OTHER, SELFPAY ==
--- OUTSIDE RECORDS SUMMARY | 2022-04-06 11:22 | XMS_ITS | Continuity of Care Document ---
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 [address], [address], . tel:[phone] Referring Provider: Sahil Reid MD, [address] [place] [address], [id number]. tel:[phone] Family History Family Member Type Diagnosis Age At Onset No Information Payers Payer name Insurance type Covered democrat ID Authordinesha timaikel(s) [facility] CI [id number] Social History Type Description Quantity Date Captured Comments Sex Female Smoking Status No Information Chief Complaint And Reason For Visit No Information Reason For Referral Reason For Referral No Information History Of Present Illness Encounter Date Complaint History Of Prese nt Illness No Information Functional Status Date Functional Assessmen t No Information Instructions Date Instruction Additional Infor mation No Information Assessments Type Assessment Date No Information Patient Care Teams Name Effective Dates (start - stop) Status Members No Information
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
[2025-01-02 15:04] VITALS: PULSE 69; O2SAT 97
--- OUTSIDE RECORDS SUMMARY | 2025-01-02 15:08 | XMS_ITS | Clinical Summary ---
Author Organization [facility] Address [address] [place] [address] Care Team Providers Care Visual Merchandising Specialist Name Role Phone Unavailable Primary Care Provider [...] Zoster (Shingles) Vaccine (1 of 2) 09/23/2023 Influenza Vaccine 10/03/2024 COVID-19 Vaccine ( - 2023- season) 2024 RSV Vaccine 50 years and old er and Patients (1 - 1-dose 75+ series) [address] [facility]
== END 2025-01-02 15:46 | disposition home or self-care (01) ==
LOC: HO.HSMS 14:36
PROVIDERS: PCP Physician Assistant; Visit Provider Physician Assistant Medical
DX: G47.33 Obstructive sleep apnea (adult) (pediatric) (principal); R06.83 Snoring; R42 Dizziness and giddiness; G47.19 Other hypersomnia; Z87.898 Personal history of other specified conditions; H83.2X3 Labyrinthine dysfunction, bilateral; R25.2 Cramp and spasm; R53.82 Chronic fatigue, unspecified; H81.10 Benign paroxysmal vertigo, unspecified ear; S09.90XA Unspecified injury of head, initial encounter
CPT/HCPCS: 99214; G2211